=== PATIENT | female | born 1995 | race Caucasian/White ===

== ENCOUNTER 2025-01-24 08:28 | Emergency (ER) | payer OTHER ==
[~2025-01-24] VITALS: Ht 175.3 cm; Wt 93.8 kg
[2025-01-24] MEDS ORDERED: FLUOXETINE HCL20 MG PO (09:38)
[2025-01-24 09:44] LABS: BASOPHILS 1.4 % (0.1-1.2); EOSINOPHILS 8.6 % (0.7-5.8); LYMPHOCYTES 24.7 % (19.3-51.7); MCH 29.1 PG (25.6-32.2); MCHC 33.4 g/dL (32.2-35.5); MCV 87.1 fL (79.4-94.8); MONOCYTES 7.9 % (4.7-12.5); NEUTROPHILS 57.1 % (34.0-71.1); RBC 4.88 M/uL (3.93-5.22)
[2025-01-24 10:04] LABS: ALT (SGPT) 36.0 U/L (14-59); AST (SGOT) 23.0 U/L (15-37); GLOMERULAR FILTRATION RATE,EST 81.0 mL/min (>60); PROTEIN, TOTAL 8.4 g/dL (6.4-8.2); UREA NITROGEN 14.0 mg/dL (7-18)
[2025-01-24] MEDS ORDERED: SODIUM CHLORIDE 0.9% 1,000 ML IV PRN (10:30)
[2025-01-24] MEDS ORDERED: KETOROLAC TROMETHAMINE 15 MG/ML VIAL IV ONE (10:45)
[2025-01-24 10:50] LABS: BLOOD/HGB, URINE NEGATIVE (Negative); KETONE, URINE NEGATIVE (Negative); LEUK ESTERASE, URINE NEGATIVE (negative); NITRITE, URINE NEGATIVE (negative)
[2025-01-24] MEDS ORDERED: ONDANSETRON ODT4 MG PO (11:22)
[2025-01-24] MEDS ORDERED: ANTI-DIARRHEAL2 M1 PO (11:22)
[2025-01-24 11:34] VITALS: BP 135/81
== END 2025-01-24 11:34 | disposition home or self-care (01) ==
LOC: ED 08:28
PROVIDERS: Emergency Medicine
DX: R19.7 Diarrhea, unspecified (principal); R11.0 Nausea; Z79.899 Other long term (current) drug therapy
CPT/HCPCS: 36415; 80053; 81003; 83690; 84703; 85025; 96374; 96375; 99284-25; J1885; J2405; J7030